=== PATIENT | male | born 1960 | race Two or more races ===

== ENCOUNTER 2018-06-27 15:44 | Outpatient (CLI) | payer OTHER | END 2018-06-27 15:53 | disposition home or self-care (01) | LOC: RAD 501 15:44 | DX: M25.561 Pain in right knee (principal) ==

== ENCOUNTER 2018-07-18 15:40 | Outpatient (CLI) | payer OTHER | END 2018-07-18 15:58 | disposition home or self-care (01) | LOC: RAD 501 15:40 | DX: M24.551 Contracture, right hip (principal) ==

== ENCOUNTER 2018-10-18 09:50 | Outpatient (CLI) | payer OTHER | END 2018-10-18 09:59 | disposition home or self-care (01) | LOC: RAD 501 09:50 | DX: M17.11 Unilateral primary osteoarthritis, right knee (principal) ==

== ENCOUNTER → 2018-11-09 | Day surgery (SDC) | payer OTHER ==
[~2018-11-09] MED LIST: SYNTHROID137 MCG PO
== END | disposition home or self-care (01) ==
LOC: ADM 11-08 07:00 → CIR.AMB 07:00
DX: M23.231 Derangement of other medial meniscus due to old tear or injury, right knee (principal); M23.251 Derangement of posterior horn of lateral meniscus due to old tear or injury, right knee; M17.11 Unilateral primary osteoarthritis, right knee; M12.261 Villonodular synovitis (pigmented), right knee; M22.11 Recurrent subluxation of patella, right knee

== ENCOUNTER 2021-11-09 14:27 | Outpatient (CLI) | payer OTHER | END 2021-11-09 14:38 | disposition home or self-care (01) | LOC: RAD 14:27 | PROVIDERS: ATTEND Orthopaedic Surgery | DX: M25.542 Pain in joints of left hand (principal) ==